=== PATIENT | male | born 1965 | race Two or more races ===

== ENCOUNTER → 2018-05-17 | Outpatient (CLI) | payer MEDICARE, MEDICAID | END | disposition home or self-care (01) | LOC: RADMN 08:57 | PROVIDERS: ATTEND General Practice | DX: K57.32 Diverticulitis of large intestine without perforation or abscess without bleeding (principal); E27.9 Disorder of adrenal gland, unspecified; J98.4 Other disorders of lung; N28.1 Cyst of kidney, acquired; I70.0 Atherosclerosis of aorta; I51.7 Cardiomegaly; K52.9 Noninfective gastroenteritis and colitis, unspecified | CPT/HCPCS: 74176 ==